=== PATIENT | female | born 1990 | race Caucasian/White ===

== ENCOUNTER 2024-08-28 21:34 | Observation (INO) | payer BC, SELFPAY ==
[2024-08-28] VITALS (34 sets, daily range): BP systolic 127–166; BP diastolic 64–78; PULSE 96–113; RESP 17; TEMP 36.8; O2SAT 91–98; BMI 44.9
[2024-08-28 21:55] LABS: ROM Kit Lot # 57802192
[2024-08-28 21:56] LABS: ROM Kit Exp Date# 12292026; ROM Swab Mixed By: DELEN1; Rupture of Fetal Membranes Negative (Negative); Swb Mxed in Solvent 1 min? Yes
--- NOTE | 2024-08-28 22:19 | XR_ITS ---
Examination: Complete OB ultrasound greater than 14 weeks Date and time of exam: August 28, 2024 at 10:20 PM Indications: Type 2 diabetes, leaking amniotic fluid beginning 2 hours ago Findings: Viable intrauterine single fetus with single amniotic sac presentation cephalic spine maternal left Cardiac motion 150 BPM Placenta fundal grade 2 Umbilical cord insertion 3 vessel seen Amniotic fluid index 8.5 cm Cervix 4.0 cm Ovaries obscured by bowel gas. Composite estimated gestational age based on BPD, head circumference, abdominal circumference, femur length is 33 weeks 2 days Estimated weight 2184 g. Survey of intracranial anatomy, spinal anatomy, abdominal anatomy, four-chamber heart performed with no abnormalities identified. Impression: Viable intrauterine gestation cephalic presentation Estimated gestational age 33 weeks 2 days Nuchal cord x1 Placenta fundal grade 2 no abruption Amniotic fluid index 8.5 cm.
[2024-08-29] VITALS: PULSE 101; O2SAT 98
[2024-08-29] MEDS: BETAMET ACET/BETAMET NA PH (Celestone) 6 MG/ML VIAL 12 MG IM (00:11)
[2024-08-29 00:19] VITALS: BP 136/72; PULSE 108
--- NOTE | 2024-08-29 06:28 | PC.NURSE ---
RN CALLED LAB REGARDING FFN RESULTS. LAB STATES THAT THE ORDER WAS CANCELLED BY THE MD & THAT THE FFN CAN NO LONGER BE RUN SINCE THEY'RE ONLY GOOD FOR 30 MINUTES. ISSUE ESCALATED TO DEVOPS ARCHITECT.
--- NOTE | 2024-08-29 19:58 | PC.NURSE ---
0707: DR. BUTLER CALLED AND WAS NOTIFIED THAT FIBRONECTIN WAS CANCELLED, NO NEW ORDERS RECEIVED.
== END 2024-08-29 00:26 | disposition home or self-care (01) ==
PROVIDERS: Admitting Provider Specialist; Visit Provider Specialist
DX: Z34.83 Encounter for supervision of other normal pregnancy, third trimester (principal); Z3A.33 33 weeks gestation of pregnancy
CPT/HCPCS: 59025; 59899; 76805; 82731; 84112; 96372; G0378; J0702

== ENCOUNTER 2024-08-29 19:41 | Outpatient (CLI) | payer BC, SELFPAY ==
[2024-08-29 19:55] VITALS: BP 162/86; PULSE 96
[2024-08-29 20:00] VITALS: BP 147/80; PULSE 96; RESP 18; TEMP 36.7; O2SAT 99; BMI 44.4
[2024-08-29 20:05] VITALS: BP 147/80; PULSE 96
[2024-08-29 20:15] VITALS: BP 137/75; PULSE 90
[2024-08-29] MEDS: BETAMET ACET/BETAMET NA PH (Celestone) 6 MG/ML VIAL 12 MG IM (20:20)
== END 2024-08-29 20:24 | disposition home or self-care (01) ==
LOC: S4S1 19:42 → S4SX 19:42
PROVIDERS: Referring Provider Specialist; Visit Provider Specialist
DX: Z34.83 Encounter for supervision of other normal pregnancy, third trimester (principal); Z3A.32 32 weeks gestation of pregnancy
CPT/HCPCS: 59025; 96372; J0702

== ENCOUNTER 2024-10-04 14:11 | Outpatient (CLI) | payer BC, SELFPAY ==
[2024-10-04] VITALS (10 sets, daily range): BP systolic 129–141; BP diastolic 72–80; PULSE 82–98; RESP 18–99; TEMP 36.7; O2SAT 100; BMI 45.4
== END 2024-10-04 15:25 | disposition home or self-care (01) ==
LOC: S4S1 14:12 → S4SX 14:12
PROVIDERS: Referring Provider Specialist; Visit Provider Specialist
DX: Z34.83 Encounter for supervision of other normal pregnancy, third trimester (principal); Z36.9 Encounter for antenatal screening, unspecified; Z3A.37 37 weeks gestation of pregnancy
CPT/HCPCS: 59025

== ENCOUNTER → 2024-10-07 | Outpatient (CLI) | payer BC, SELFPAY ==
[2024-10-07 13:16] LABS: Basophils % (Auto) 0 % (0-2.5); Eosinophils # (Auto) 0.1 Thou/mm3 (0.0-0.5); Eosinophils % (Auto) 1 % (0-10); Hematocrit 35.9 % (36.0-46.0); Hemoglobin 12.2 g/dL (12.0-16.0); Immature Granulocytes % (Auto) 1 % (0-0); Immature Granulocytes Auto 0.18 Thou/mm3 (0.00-0.00); Lymphocytes # (Auto) 1.6 Thou/mm3 (1.0-4.8); Lymphocytes % (Auto) 13 % (10-50); Mean Corpuscular Hemoglobin 29.3 pg (25.0-35.0); Mean Corpuscular Volume 86 fL (80-100); Monocytes # (Auto) 0.7 Thou/mm3 (0.0-0.8); Monocytes % (Auto) 5 % (0-12); Neutrophils # (Auto) 10.2 Thou/mm3 (1.8-7.7); Neutrophils % (Auto) 80 % (37-80); Nucleated Red Blood Cell % 0 /100 WBC (0); Platelet Count 201 Thou/mm3 (140-440); RDW Standard Deviation 49.2 fL (36.4-46.3); Red Blood Count 4.16 Miln/mm3 (4.00-5.20); White Blood Count 12.7 Thou/mm3 (3.6-11.0)
[2024-10-07 13:47] LABS: Alanine Aminotransferase < 7 U/L (10-49); Albumin, Serum 4.1 gm/dL (3.5-5.0); Albumin/Globulin Ratio 1.6 (1.2-2.2); Alkaline Phosphatase 119 U/L (46-116); Anion Gap 12 (7-16); Aspartate Amino Transferase 11 U/L (0-34); BUN/Creatinine Ratio 17 Ratio (12-20); Bilirubin,Total 0.4 mg/dL (0.3-1.2); Blood Urea Nitrogen 10 mg/dL (9-23); Calcium 9.3 mg/dL (8.3-10.6); Calcium (Corrected) 9.3 mg/dL (8.5-10.1); Carbon Dioxide 20.5 mMol/L (20.0-31.0); Chloride 105 mMol/L (98-107); Creatinine (Component) 0.6 mg/dL (0.6-1.3); Globulin 2.6 gm/dL (2.3-3.5); Glucose 159 mg/dL (74-106); Osmolality,Calculated 275 (275-295); Potassium 3.9 mMol/L (3.4-5.1); Sodium 137 mMol/L (136-145); Total Protein 6.7 gm/dL (5.7-8.2); eGFR > 60 See Note
[2024-10-07 13:54] LABS: Syphilis Nonreactive (Nonreactive)
[2024-10-07 13:58] LABS: INR 0.9 (0.9-1.3); Partial Thromboplastin Time 27.2 Seconds (22.0-36.0)
== END | disposition home or self-care (01) ==
LOC: SLAB 11:56
PROVIDERS: PCP Physician Assistant; Referring Provider Specialist; Visit Provider Specialist
DX: Z34.83 Encounter for supervision of other normal pregnancy, third trimester (principal)
CPT/HCPCS: 36415; 80053; 85025; 85610; 85730; 86780; 86850; 86900; 86901

== ENCOUNTER 2024-10-10 05:29 | Inpatient (IN) | payer BC, SELFPAY ==
[2024-10-10] VITALS (20 sets, daily range): BP systolic 119–163; BP diastolic 66–97; PULSE 73–125; RESP 16–18; TEMP 36.3–37.2; O2SAT 98–100; BMI 45.1
--- NOTE | 2024-10-10 07:05 | PD.LDHP ---
Documentation for date of: 10/10/24 OB Labor/Induct. HPI History of Present Illness History of present illness: H and P dictated in [facility] under STAT line #9 on 10/08. [id number] Meds Home Medications and Allergies Home Medications ?Medication ?Instructions ?Recorded ?Confirmed ?Type vits no.124-ferrous fum 1 tab PO DAILY 05/07/20 08/29/24 History 27 mg iron-folic acid 800 mcg tablet ( Vitamin) aspirin 81 mg tablet,delayed 81 mg PO QDAY 08/28/24 08/29/24 History release (Leta Low Dose Aspirin) folic acid 1 mg tablet 1 mg PO DAILY 08/28/24 08/29/24 History insulin NPH isoph U-100 human 100 36 unit subcut BID 08/28/24 08/29/24 History unit/mL (3 mL) subcutaneous pen (Humulin N NPH U-100 Insulin KwikPen) insulin lispro 100 unit/mL 13 unit subcut [facility]HS 08/29/24 08/29/24 History subcutaneous pen (Humalog KwikPen (U-100) Insulin) Allergies Allergy/AdvReac Type Severity Reaction Status Date / Time azithromycin [From Zithromax] Allergy Severe Rash Verified 08/29/24 20:12 cefprozil [From Cefzil] Allergy Severe Rash Verified 08/29/24 20:12 OB Exam Physical Exam Vital signs: Temp Pulse BP 97.6 F 99 139/67 H 10/10/24 05:36 10/10/24 07:02 10/10/24 07:02
[2024-10-10 07:21] LABS: Basophils # (Auto) 0.1 Thou/mm3 (0.0-0.2); Basophils % (Auto) 0 % (0-2.5); Eosinophils # (Auto) 0.1 Thou/mm3 (0.0-0.5); Eosinophils % (Auto) 1 % (0-10); Hematocrit 37.1 % (36.0-46.0); Hemoglobin 12.7 g/dL (12.0-16.0); Immature Granulocytes % (Auto) 2 % (0-0); Immature Granulocytes Auto 0.24 Thou/mm3 (0.00-0.00); Lymphocytes # (Auto) 2.4 Thou/mm3 (1.0-4.8); Lymphocytes % (Auto) 18 % (10-50); Mean Corpuscular HGB Conc 34.2 g/dl (31.0-37.0); Mean Corpuscular Hemoglobin 29.3 pg (25.0-35.0); Mean Corpuscular Volume 86 fL (80-100); Monocytes # (Auto) 0.9 Thou/mm3 (0.0-0.8); Monocytes % (Auto) 7 % (0-12); Neutrophils # (Auto) 9.6 Thou/mm3 (1.8-7.7); Neutrophils % (Auto) 72 % (37-80); Nucleated Red Blood Cell % 0 /100 WBC (0); Platelet Count 191 Thou/mm3 (140-440); RDW Standard Deviation 48.7 fL (36.4-46.3); Red Blood Count 4.33 Miln/mm3 (4.00-5.20); White Blood Count 13.3 Thou/mm3 (3.6-11.0)
[2024-10-10] MEDS: CLINDAMYCIN 900MG IVPB 50 ML 100 MG IV (07:21)
[2024-10-10] MEDS: RINGERS LACTATED 1000 ML 1,000 ML 100 ML IV (07:24)
[2024-10-10] MEDS: GENTAMICIN/NS 80 MG IVPB 80 MG in PRE-MIXED 1 BAG 50 MG IV (07:24)
[2024-10-10] MEDS: FAMOTIDINE INJ 10 MG/ML VIAL 2 ML 20 MG IV (07:42)
[2024-10-10] MEDS: METOCLOPRAMIDE INJ 5 MG/ML VIAL 2 ML 10 MG IVP (07:42)
[2024-10-10 07:57] LABS: Syphilis Nonreactive (Nonreactive)
--- NOTE | 2024-10-10 08:10 | ESHP_ITS ---
RE: AMILCAR RAMOS : 1990 DATE OF ADMISSION: 10/10/2024 HISTORY OF PRESENT ILLNESS: This is a 34-year-old 2 para 1-0-0-1 with due date of 10/24/2024 with intrauterine at 38 weeks on 10/10/2024, who presents for repeat delivery. The patient's care was complicated by class B diabetes mellitus, controlled on insulin. She also tends to have elevated blood pressures in the office setting, but normal blood pressures at home. She had maternal medicine ultrasounds and echocardiogram during her due to pregestational diabetes and anatomy was normal. ALLERGIES: ZITHROMAX AND CEFZIL. MEDICATIONS: 1. multivitamin 1 p.o. daily. 2. Humulin NPH 40 units before breakfast and 24 units at bedtime. 3. Humalog insulin 22 units before breakfast and 16 units with dinner. PAST SURGICAL HISTORY: Tonsillectomy and delivery. SOCIAL HISTORY: She denies any alcohol or drug use or smoking. She is . PAST MEDICAL HISTORY: Class B diabetes mellitus, white coat hypertension, and Rh negative. FAMILY HISTORY: Mother has asthma, diabetes, and heart disease. OBSTETRIC HISTORY: 12/2019, 37 weeks' delivery, 6 pound 15 ounce male, no complications. REVIEW OF SYSTEMS: She denies any chest pain, palpitations, cough, fever, shortness of breath or lower extremity pain. She denies any headache, change in vision or right upper quadrant pain. PHYSICAL EXAMINATION: VITAL SIGNS: Blood pressure is 174/87, heart rate 88, respirations 18, and temperature 98.2. HEENT: Oropharynx and sclerae are clear. LUNGS: Clear to auscultation bilaterally. HEART: Regular rate and rhythm. ABDOMEN: Gravid term size. Old Pfannenstiel scar noted. PELVIC: Deferred. EXTREMITIES: Nontender. SKIN: No gross rashes or lesions. NEUROLOGIC: No focal deficit. ASSESSMENT: Intrauterine at 38-week gestation, chronic hypertension, and class B diabetes mellitus. PLAN: delivery. Informed consent was obtained. The patient was made aware of the risks, complications, alternatives and benefits of the proposed procedure and she agrees. DT: 12:45:13 TT: 15:32:00 Ref: [id number] - TID: [id number] [facility]
[2024-10-10 09:37] LABS: Collection Type, Urine Clean Catch; RBC,Urine 0 /hpf (0-3)
[2024-10-10] MEDS: OXYTOCIN in NS 20 units 20 UNIT/1,000 ML BAG 125 UNIT IV ×2 (09:43→18:02)
--- NOTE | 2024-10-10 10:01 | ESOP_ITS ---
RE: AMILCAR RAMOS : 1990 DATE OF OPERATION: 10/10/2024 PREOPERATIVE DIAGNOSES: 1. Intrauterine at 38 weeks. 2. Chronic hypertension. 3. Class B diabetes mellitus. 4. Previous delivery, elects repeat delivery. POSTOPERATIVE DIAGNOSES: 1. Intrauterine at 38 weeks. 2. Chronic hypertension. 3. Class B diabetes mellitus. 4. Previous delivery, elects repeat delivery. PROCEDURE PERFORMED: Repeat low transverse section via Pfannenstiel incision. SURGEON: Teo Garcia DO HISTOLOGIC TECHNICIAN: JOE Christian ANESTHESIA: Spinal. ANESTHESIOLOGIST: Matt Edge CRNA ESTIMATED BLOOD LOSS: 500 mL COMPLICATIONS: None. COUNTS: Correct. PATHOLOGY: None. FINDINGS: A live male infant, cephalic presentation, nuchal cord, clear amniotic fluid. cord, see RN notes. Cord pH, see labs. Uterus, ovaries, and fallopian tubes grossly within normal limits. DESCRIPTION OF PROCEDURE: After proper informed consent was obtained, the patient was made aware of the risks, complications, alternatives, and benefits of the proposed procedure, she was taken to the operating room where she underwent induction of spinal anesthesia. She was placed in the dorsal supine position with leftward tilt. She was prepped and draped in the usual sterile fashion. Pfannenstiel skin incision was made with scalpel carried through to the underlying fascia with the Bovie. The fascia was nicked in the midline. Incision was extending bilaterally with the Bovie. The inferior aspect of the fascial incision was grasped Maryjane clamps and elevated. The underlying rectus muscle was dissected off with the Bovie. The rectus was at the midline. Peritoneum identified between two Leos clamps and entered sharply with the Metzenbaum scissors. The incision was extended superiorly and inferiorly with good visualization of the bladder. The bladder blade was then inserted. Vesicouterine peritoneum was incised transversely and bladder flap was created digitally. Bladder blades were reinserted. The lower uterine segment incised transversely with the scalpel. The incision was extended bilaterally digitally. The 's head delivered. The mouth and nose suctioned with bulb suction. Nuchal cord reduced. Shoulders and body delivered atraumatically. The cord was clamped and cut and sent off the waiting pediatric staff. Cord blood gases were sent. The placenta was then removed manually. The uterus was exteriorized and cleared all clots and debris. The uterine incision was repaired with #1-0 chromic catgut suture in a running locking fashion. Second layer of the same suture was used to imbricate the first layer and obtained excellent hemostasis. The vesicouterine peritoneum was closed with 2-0 chromic catgut suture in a running fashion. The uterus was returned to the abdomen. The gutters were clear of all clots and debris. The peritoneum was closed with 0 chromic catgut suture in a running fashion. The muscle was closed with 0 chromic catgut suture in a running fashion. The fascia was closed with #0 Vicryl beginning at each angle and ending center in running fashion. Subcutaneous tissue was irrigated with normal saline solution and found to be hemostatic, closed with 2-0 chromic catgut suture in a running fashion. The skin was closed with 4-0 Monocryl. A Dermabond Prineo dressing was applied. A sterile pressure dressing was applied. She tolerated the procedure well. Counts were correct. I discussed with the patient, the nature of her condition, and the intraoperative findings, and expectations for recovery. All questions answered. DT: 08:59:20 TT: 09:59:00 Ref: [id number] - TID: [id number]
[2024-10-10 10:50] LABS: Fibrinogen 585 mg/dL (175-375); Partial Thromboplastin Time 28.7 Seconds (22.0-36.0); Prothrombin Time 10.7 Seconds (9.0-12.2)
[2024-10-10 10:53] LABS: Bilirubin,Urine Negative (Negative); Blood,Urine Negative (Negative); Clarity,Urine Clear (Clear/Hazy); Color,Urine Lt-Yellow (Lt Yel-Yel); Glucose, Urine Negative (Negative); Ketones,Urine Negative (Negative); Leukocyte Esterase,Urine Negative (Negative); Nitrite,Urine Negative (Negative); Protein,Urine Negative (Neg - Trace); Specific Gravity,Urine 1.021 (1.001-1.035); Squamous Epithelial Cell,Urine 1 /hpf (0-5); Urobilinogen,Urine Negative mg/dL (0.0-1.0); WBC,Urine 2 /hpf (0-5)
[2024-10-10 11:07] LABS: Alanine Aminotransferase 10 U/L (10-49); Albumin, Serum 3.5 gm/dL (3.5-5.0); Albumin/Globulin Ratio 1.5 (1.2-2.2); Alkaline Phosphatase 104 U/L (46-116); Anion Gap 9 (7-16); Aspartate Amino Transferase < 8 U/L (0-34); BUN/Creatinine Ratio 13 Ratio (12-20); Bilirubin,Total 0.4 mg/dL (0.3-1.2); Blood Urea Nitrogen 8 mg/dL (9-23); Calcium (Corrected) 9.4 mg/dL (8.5-10.1); Carbon Dioxide 23.4 mMol/L (20.0-31.0); Chloride 104 mMol/L (98-107); Creatinine (Component) 0.6 mg/dL (0.6-1.3); Globulin 2.4 gm/dL (2.3-3.5); Glucose 112 mg/dL (74-106); Osmolality,Calculated 271 (275-295); Potassium 4.3 mMol/L (3.4-5.1); Sodium 136 mMol/L (136-145); Total Protein 5.9 gm/dL (5.7-8.2); Uric Acid 4.3 mg/dL (3.1-7.8); eGFR > 60 See Note
[2024-10-10] MEDS: DiphenhydrAMINE INJ 50 MG/ML VIAL 25 MG IV (11:50)
[2024-10-10] MEDS: KETOROLAC INJ 30 MG/ML VIAL IVP ×2 (11:55→20:23)
[2024-10-10 14:11] LABS: Basophils % (Auto) 0 % (0-2.5); Eosinophils % (Auto) 0 % (0-10); Hematocrit 33.4 % (36.0-46.0); Hemoglobin 11.2 g/dL (12.0-16.0); Immature Granulocytes % (Auto) 1 % (0-0); Immature Granulocytes Auto 0.14 Thou/mm3 (0.00-0.00); Lymphocytes # (Auto) 2.2 Thou/mm3 (1.0-4.8); Lymphocytes % (Auto) 15 % (10-50); Mean Corpuscular HGB Conc 33.5 g/dl (31.0-37.0); Mean Corpuscular Hemoglobin 29.3 pg (25.0-35.0); Mean Corpuscular Volume 87 fL (80-100); Monocytes % (Auto) 7 % (0-12); Neutrophils # (Auto) 11.4 Thou/mm3 (1.8-7.7); Neutrophils % (Auto) 77 % (37-80); Nucleated Red Blood Cell % 0 /100 WBC (0); Platelet Count 186 Thou/mm3 (140-440); Red Blood Count 3.82 Miln/mm3 (4.00-5.20); White Blood Count 14.8 Thou/mm3 (3.6-11.0)
--- NOTE | 2024-10-10 17:33 | PD.LDDS ---
DS: Providers Provider Date of admission: 10/10/24 05:29 Primary care physician: Courtney Ramos PA-C Admitting Provider: Teo Garcia MD Attending Provider on Admission: Teo Garcia MD Consults: 10/10/24 09:31 Referral Routine Comment: Attending Provider on DC: Teo Garcia MD Discharging Provider: Teo Garcia MD DS: Diagnosis Problem List Completed Was Problem List Reviewed/Reconciled?: Yes Summary/Hosp Course Brief History: H and P dictated in Nuance under STAT line #9 on 10/08. [id number] Peripartum Data Procedures: Procedures Operation Date: 10/10/24 07:45 Actual Procedure Side Surgeon p in OB Teo Garcia MD Time Spent with Patient Time attestation: Total time spent providing and/or coordinating discharge services: Exam Vital Signs Temp Pulse Resp BP Pulse Ox O2 Del Method 99 F 89 16 124/79 99 Room Air 10/10/24 16:00 10/10/24 16:00 10/10/24 16:00 10/10/24 16:00 10/10/24 16:00 10/10/24 16:00 Discharge Plan Plan Patient Disposition: HOME (Self Care) Patient condition on transfer: Stable Prescriptions/Referrals Prescriptions/Med Rec: New ibuprofen 600 mg tablet 600 mg PO Q6H PRN (Reason: pain) Qty: 30 0RF Continued metformin 500 mg tablet 500 mg PO BIDWM Patient Comments: TAKE 1 TABLET BY MOUTH TWICE DAILY WITH A MEAL Discontinued aspirin [Leta Low Dose Aspirin] 81 mg tablet,delayed release (DR/EC) 81 mg PO QDAY Patient Comments: Take 2 tablet by mouth once a day folic acid 1 mg tablet 1 mg PO DAILY Patient Comments: TAKE 1 TABLET BY MOUTH EVERY DAY Humulin N NPH Insulin KwikPen 100 unit/mL (3 mL) insulin pen 36 unit SUBCUT BID Patient Comments: Inject 36 unit subcutaneously twice a day as directed INJECT 36 UNITS OF HUMULIN N NPH SC BEFORE BREAKFAST AND 20 UNITS SC AT BEDTIME. insulin lispro [Humalog KwikPen Insulin] 100 unit/mL insulin pen 13 unit SUBCUT WMHS Patient Comments: Inject 17 unit subcutaneously as directed with breakfast and 11 units with dinner. Referrals: Courtney Ramos PA-C [Primary Care Provider] - Patient/Caregiver Discharge Instructions Discharge Activity: activity as tolerated Other Discharge Activity Instructions:: Follow up office 1 weeks 2200 lindsay ADA diet. Education Materials: C Section Dc Print Language: Vietnamese Stand Alone Forms: [facility] Award Info., Patient Portal Info Letter Discharge Order Discharge Orders: Discharge (Routine); Ordered 10/12/24 Ordered By: Teo Garcia Planned Discharge Date 10/12/24
[2024-10-10] MEDS: metFORMIN 500 MG TABLET PO (17:36)
[2024-10-11 00:10] VITALS: BP 103/66; PULSE 78; RESP 18; TEMP 36.7; O2SAT 98
[2024-10-11] MEDS: KETOROLAC INJ 30 MG/ML VIAL IVP (03:41)
[2024-10-11 04:10] VITALS: BP 115/76; PULSE 84; RESP 18; TEMP 36.5; O2SAT 97
--- NOTE | 2024-10-11 07:17 | OBDSUM_ITS ---
Data ([facility]) Data Hx Section: Yes : 2 Para: 1 Term: 1 : 0 : 0 Delivery Data ([facility]) Labor Data ROM Date: 10/10/24 ROM Time: 08:28 Rupture Type: AROM Amniotic Fluid: Clear Delivery Data EDC: 10/24/24 EDC calculated by:: LMP/early US confirmation Delivery Date: 10/10/24 Delivery Time: 08:29 Gestational age (weeks): 38 Gestational age (days): 0 Placenta Delivery Date: 10/10/24 Placenta Delivery Time: 08:30 Delivered by: Teo Garcia Delivery nurse: Abe Rajput Other staff at delivery: Nursery Nurse Other staff at delivery: RT Other staff at delivery: Francia Anderson Other staff at delivery: SHAUN Delivery Method Delivery: Delivery Type: Repeat Presentation: Vertex Position: OA Anesthesia Type Primary Anesthesia: Spinal Placenta Placenta Delivery: Manual Placenta Cultures Obtained: No Placenta Sent for Examination: No Cord Sample: Cord Blood Obtained EBL Estimated blood loss (ml): 600 Umbilical Cord Umbilical Vessels: 3 Nuchal Cord: x1 Additional Procedures None Complications Complications: None [place] Data ([facility]) Data Gender: Male Infant Weight Grams: 3670 1 Minute Total: 7 5 Minute Total: 8
[2024-10-11 07:44] VITALS: BP 131/85; PULSE 87; RESP 17; TEMP 36.8; O2SAT 99
--- NOTE | 2024-10-11 08:00 | PC.LAC ---
Mom has been pumping for baby in the NICU. States she is getting about 4 mls on each breast when pumping, about every 2-3 hours except at night she goes a little longer than 3 hours. Dropped off more syringes and labels for her to store milk for taking to NICU.
--- NOTE | 2024-10-11 08:19 | ESPR_ITS ---
RE: AMILCAR RAMOS : 1990 DATE OF SERVICE: 10/11/2024 SUBJECTIVE: Postop day #1, the patient denies any problems or complaints. She is voiding, ambulating, tolerating diet, passing flatus. She denies any excessive vaginal bleeding. She denies any dizziness or lightheadedness. She denies any chest pain, palpitations, shortness of breath, or lower extremity pain. OBJECTIVE: Vital Signs: Blood pressure 115/76, heart rate 84, respirations 18, temperature 97.7, pulse oximetry 97% on room air. Lungs: Clear to auscultation bilaterally. Heart: Regular rate and rhythm. Abdomen: Fundus is firm. Dressing is dry and intact. Extremities: Nontender. LABORATORY DATA: Hemoglobin predelivery is 12.7, post-delivery is 11.2. ASSESSMENT: Postoperative day #1, status post delivery. PLAN: Continue ADA diet and metformin. Blood sugars are controlled with metformin. Remove dressing. Encourage ambulation. Discontinue IV. Possible discharge home tomorrow. DT: 07:05:39 TT: 08:17:00 Ref: [id number] - TID: [id number]
[2024-10-11] MEDS: ENOXAPARIN SOD INJ 40 MG/0.4 ML SYRINGE SC (08:46)
[2024-10-11] MEDS: metFORMIN 500 MG TABLET PO ×2 (08:47→17:02)
[2024-10-11] MEDS: HYDROcodone/APAP 5/325 TABLET 1 TAB PO ×2 (10:40→19:09)
[2024-10-11 20:00] VITALS: BP 121/79; PULSE 97; RESP 18; TEMP 37.1; O2SAT 97
[2024-10-12] MEDS: HYDROcodone/APAP 5/325 TABLET 1 TAB PO (02:41)
[2024-10-12 04:00] VITALS: BP 127/79; PULSE 84; RESP 18; TEMP 36.6; O2SAT 95
[2024-10-12] MEDS: IBUPROFEN TAB 400 MG TABLET 800 MG PO (04:04)
[2024-10-12] MEDS: metFORMIN 500 MG TABLET PO (07:33)
--- NOTE | 2024-10-12 07:53 | ESPR_ITS ---
RE: AMILCAR RAMOS : 1990 DATE OF SERVICE: 10/12/2024 SUBJECTIVE: Postop day #2, the patient denies any problems or complaints. Her blood sugars have been low with metformin b.i.d. OBJECTIVE: Vital Signs: Blood pressure 127/79, heart rate 84, respirations 18, temperature 97.9, pulse oximetry 95% on room air. Lungs: Clear to auscultation bilaterally. Heart: Regular rate and rhythm. Abdomen: Incision clear and intact. Fundus is firm. Extremities: Nontender. ASSESSMENT: Postop day #2, status post delivery, pregestational diabetic. PLAN: Discharge home with metformin 500 mg one p.o. daily. Home blood sugar monitoring. Follow up in the office in one week. Discharge instructions given. DT: 06:50:20 TT: 07:52:00 Ref: [id number] - TID: [id number]
[2024-10-12 08:00] VITALS: BP 130/80; PULSE 95; RESP 18; TEMP 36.8; O2SAT 97
[2024-10-12] MEDS: ENOXAPARIN SOD INJ 40 MG/0.4 ML SYRINGE SC (08:15)
[2024-10-12 09:48] VITALS: BP 134/81; PULSE 98; RESP 19; TEMP 36.7; O2SAT 97
[2024-10-12 10:00] VITALS: BP 136/86; PULSE 91; RESP 18; TEMP 36.8; O2SAT 97
== END 2024-10-12 10:28 | disposition home or self-care (01) | DRG 786 ==
LOC: S4SX 05:30 → S4NX 08:04
PROVIDERS: Admitting Provider Specialist; PCP Physician Assistant; Visit Provider Specialist
PROC: 10D00Z1 Extraction of Products of Conception, Low, Open Approach (ICD-10-PCS; CPT 59514; principal; 2024-10-10 07:30)
DX: O34.211 Maternal care for low transverse scar from previous cesarean delivery (principal); O24.32 Unspecified pre-existing diabetes mellitus in childbirth; O69.81X0 Labor and delivery complicated by cord around neck, without compression, not applicable or unspecified; O16.4 Unspecified maternal hypertension, complicating childbirth; Z3A.38 38 weeks gestation of pregnancy; Z37.0 Single live birth; Z79.84 Long term (current) use of oral hypoglycemic drugs
CPT/HCPCS: 36415; 80053; 81001; 84550; 85025; 85384; 85461; 85610; 85730; 86780; 86850; 86870; 86900; 86901; A4649; J1200; J1580; J1650; J1885; J2274; J2371; J2590; J2765; J2790; J3010; J3490; J7120; S0077; A9270; J0736; J2270

== ENCOUNTER → 2025-01-25 | Outpatient (CLI) | payer BC, SELFPAY ==
[2025-01-25 08:04] LABS: Collection Type, Urine Clean Catch
[2025-01-25 08:37] LABS: Basophils % (Auto) 1 % (0-2.5); Eosinophils # (Auto) 0.2 Thou/mm3 (0.0-0.5); Eosinophils % (Auto) 2 % (0-10); Hematocrit 41.3 % (36.0-46.0); Hemoglobin 13.7 g/dL (12.0-16.0); Immature Granulocytes % (Auto) 0 % (0-0); Immature Granulocytes Auto 0.03 Thou/mm3 (0.00-0.00); Lymphocytes # (Auto) 2.4 Thou/mm3 (1.0-4.8); Lymphocytes % (Auto) 28 % (10-50); Mean Corpuscular HGB Conc 33.2 g/dl (31.0-37.0); Mean Corpuscular Hemoglobin 27.4 pg (25.0-35.0); Mean Corpuscular Volume 83 fL (80-100); Monocytes # (Auto) 0.6 Thou/mm3 (0.0-0.8); Monocytes % (Auto) 7 % (0-12); Neutrophils # (Auto) 5.2 Thou/mm3 (1.8-7.7); Neutrophils % (Auto) 62 % (37-80); Nucleated Red Blood Cell % 0 /100 WBC (0); Platelet Count 259 Thou/mm3 (140-440); RDW Standard Deviation 44.5 fL (36.4-46.3); White Blood Count 8.4 Thou/mm3 (3.6-11.0)
[2025-01-25 08:45] LABS: Glucose Estimated Average 117 mg/dL (80-131); Hemoglobin A1C 5.7 % Hgb (4.8-6.0)
[2025-01-25 08:45] LABS: Creatinine MALB Rnd Ur 127 mg/dL (30-125); Microalbumin Creat Ratio 4 mg/gCrea (<30); Microalbumin, Random Urine 5 mg/L (0-300)
[2025-01-25 08:56] LABS: Alanine Aminotransferase 13 U/L (10-49); Albumin, Serum 4.7 gm/dL (3.5-5.0); Albumin/Globulin Ratio 1.7 (1.2-2.2); Alkaline Phosphatase 76 U/L (46-116); Anion Gap 8 (7-16); Aspartate Amino Transferase 13 U/L (0-34); BUN/Creatinine Ratio 18 Ratio (12-20); Bilirubin,Total 0.5 mg/dL (0.3-1.2); Blood Urea Nitrogen 14 mg/dL (9-23); Calcium 9.4 mg/dL (8.3-10.6); Calcium (Corrected) 9.4 mg/dL (8.5-10.1); Carbon Dioxide 24.6 mMol/L (20.0-31.0); Cardiac Risk Estimate 3.8 RATIO (3.7-5.6); Chloride 110 mMol/L (98-107); Cholesterol 200 mg/dL (132-200); Creatinine (Component) 0.8 mg/dL (0.6-1.3); Globulin 2.7 gm/dL (2.3-3.5); Glucose 126 mg/dL (74-106); HDL Cholesterol 53 mg/dL (40-60); LDL Cholesterol,Calculated 136 mg/dL (0-130); Osmolality,Calculated 287 (275-295); Potassium 4.3 mMol/L (3.4-5.1); Sodium 143 mMol/L (136-145); Thyroid Stimulating Hormone 2.83 uIU/mL (0.55-4.78); Total Protein 7.4 gm/dL (5.7-8.2); Triglycerides 57 mg/dL (30-150); eGFR > 60 See Note
[2025-01-25 09:00] LABS: Bacteria,Urine Rare; Bilirubin,Urine Negative (Negative); Blood,Urine 2+ (Negative); Clarity,Urine Clear (Clear/Hazy); Color,Urine Lt-Yellow (Lt Yel-Yel); Culture Indicated,Urine Not Indicated; Glucose, Urine Negative (Negative); Ketones,Urine Negative (Negative); Leukocyte Esterase,Urine Negative (Negative); Nitrite,Urine Negative (Negative); Protein,Urine Negative (Neg - Trace); RBC,Urine 1 /hpf (0-3); Specific Gravity,Urine 1.025 (1.001-1.035); Squamous Epithelial Cell,Urine 4 /hpf (0-5); Urobilinogen,Urine Negative mg/dL (0.0-1.0); WBC,Urine 3 /hpf (0-5)
== END | disposition home or self-care (01) ==
LOC: COPL 07:02
PROVIDERS: PCP Family Medicine; Referring Provider Physician Assistant; Visit Provider Physician Assistant
DX: Z00.00 Encounter for general adult medical examination without abnormal findings (principal); E11.9 Type 2 diabetes mellitus without complications
CPT/HCPCS: 36415; 80053; 80061; 81001; 82043; 82306; 82570; 83036; 84443; 85025

== ENCOUNTER → 2025-06-22 | Outpatient (CLI) | payer BC, SELFPAY ==
[2025-06-22 08:44] LABS: Glucose Estimated Average 166 mg/dL (80-131); Hemoglobin A1C 7.4 % Hgb (4.8-6.0)
[2025-06-22 09:07] LABS: Alanine Aminotransferase 12 U/L (10-49); Albumin, Serum 4.7 gm/dL (3.5-5.0); Albumin/Globulin Ratio 1.8 (1.2-2.2); Alkaline Phosphatase 88 U/L (46-116); Anion Gap 9 (7-16); Aspartate Amino Transferase 12 U/L (0-34); BUN/Creatinine Ratio 18 Ratio (12-20); Bilirubin,Total 0.5 mg/dL (0.3-1.2); Blood Urea Nitrogen 14 mg/dL (9-23); Calcium 9.7 mg/dL (8.3-10.6); Calcium (Corrected) 9.7 mg/dL (8.5-10.1); Carbon Dioxide 26.0 mMol/L (20.0-31.0); Cardiac Risk Estimate 3.6 RATIO (3.7-5.6); Chloride 103 mMol/L (98-107); Cholesterol 197 mg/dL (132-200); Creatinine (Component) 0.8 mg/dL (0.6-1.3); Globulin 2.6 gm/dL (2.3-3.5); Glucose 228 mg/dL (74-106); HDL Cholesterol 54 mg/dL (40-60); LDL Cholesterol,Calculated 126 mg/dL (0-130); Osmolality,Calculated 283 (275-295); Potassium 4.5 mMol/L (3.4-5.1); Sodium 138 mMol/L (136-145); Total Protein 7.3 gm/dL (5.7-8.2); Triglycerides 84 mg/dL (30-150); eGFR > 60 See Note
== END | disposition home or self-care (01) ==
LOC: COPL 07:37
PROVIDERS: PCP Family Medicine; Referring Provider Physician Assistant; Visit Provider Physician Assistant
DX: E78.5 Hyperlipidemia, unspecified (principal); E11.9 Type 2 diabetes mellitus without complications
CPT/HCPCS: 36415; 80053; 80061; 83036

== ENCOUNTER → 2025-09-19 | Outpatient (CLI) | payer BC, SELFPAY ==
[2025-09-19 08:51] LABS: Glucose Estimated Average 126 mg/dL (80-131); Hemoglobin A1C 6.0 % Hgb (4.8-6.0)
[2025-09-19 08:56] LABS: Alanine Aminotransferase 17 U/L (10-49); Albumin, Serum 4.8 gm/dL (3.5-5.0); Albumin/Globulin Ratio 1.8 (1.2-2.2); Alkaline Phosphatase 72 U/L (46-116); Anion Gap 10 (7-16); Aspartate Amino Transferase 16 U/L (0-34); BUN/Creatinine Ratio 18 Ratio (12-20); Bilirubin,Total 0.7 mg/dL (0.3-1.2); Blood Urea Nitrogen 14 mg/dL (9-23); Calcium 9.3 mg/dL (8.3-10.6); Calcium (Corrected) 9.3 mg/dL (8.5-10.1); Carbon Dioxide 24.8 mMol/L (20.0-31.0); Cardiac Risk Estimate 4.0 RATIO (3.7-5.6); Chloride 107 mMol/L (98-107); Cholesterol 155 mg/dL (132-200); Creatinine (Component) 0.8 mg/dL (0.6-1.3); Globulin 2.7 gm/dL (2.3-3.5); Glucose 129 mg/dL (74-106); HDL Cholesterol 39 mg/dL (40-60); LDL Cholesterol,Calculated 99 mg/dL (0-130); Osmolality,Calculated 285 (275-295); Potassium 4.5 mMol/L (3.4-5.1); Sodium 142 mMol/L (136-145); Total Protein 7.5 gm/dL (5.7-8.2); Triglycerides 83 mg/dL (30-150); eGFR > 60 See Note
== END | disposition home or self-care (01) ==
LOC: COPL 07:08
PROVIDERS: PCP Physician Assistant; Referring Provider Physician Assistant; Visit Provider Physician Assistant
DX: E11.65 Type 2 diabetes mellitus with hyperglycemia (principal); E78.5 Hyperlipidemia, unspecified
CPT/HCPCS: 36415; 80053; 80061; 83036